=== PATIENT | male | born 1980 | race Two or more races ===

== ENCOUNTER 2022-04-11 07:55 | Emergency (ER) | payer MEDICAID ==
[~2022-04-11] VITALS: Ht 167.6 cm; Wt 108.9 kg
[2022-04-11 08:12] VITALS: BP 128/93
--- NOTE | 2022-04-11 08:12 | NUR ---
BIB C/O R EAR PAIN X2DAYS
[2022-04-11] MEDS ORDERED: CIPR7.5D9 RIGHT EAR (08:21)
--- NOTE | 2022-04-11 08:27 | NUR ---
Patient discharged to home in stable condition. Written and verbal after care instructions given. Patient verbalizes understanding of instruction.
== END 2022-04-11 08:28 | disposition home or self-care (01) ==
LOC: ER 08:08
DX: H60.91 Unspecified otitis externa, right ear (principal)